=== PATIENT | female | born 1985 ===

== ENCOUNTER 2024-11-29 11:27 | Inpatient (IN) | payer BC, SELFPAY ==
[2024-11-29 01:13] VITALS: BP 132/82
--- NOTE | 2024-11-29 01:25 | ED.GENMED ---
History of Present Illness
General
Chief Complaint: Urinary Symptoms
Source: patient
Exam Limitations: none
Time Seen by Provider: 11/29/24 01:22
Nursing documentation reviewed up to this point in time: agreed with
History of Present Illness
History of Present Illness:
Note:
CHIEF COMPLAINT(S)
Abdominal pain and fever.
HISTORY OF PRESENT ILLNESS
The patient is a 39-year-old female with a history of recurrent urinary tract infections, presenting with abdominal pain and fever that began three days ago. She reports mistakenly taking ibuprofen instead of antibiotics for what she suspects is a
urinary tract infection. The abdominal pain is described as severe and primarily located in the upper abdomen, with the pain being worse on the left side. She also experiences frequency of urination without dysuria and feelings of nausea but no
vomiting. She acknowledges a history of similar symptoms in the past, which led to a diagnosis of a kidney infection requiring antibiotics. The patient notes that she typically begins with symptoms resembling a yeast infection before escalating to a
urinary tract infection and then a kidney infection. She is currently menstruating and has been since two days ago. She reports self-administering ibuprofen 800 mg and acetaminophen (Tylenol) but took these medications believing one was an
antibiotic, which she acknowledges was a misunderstanding. Her last administration was at approximately 11:50 p.m. She has a prior hospitalization related to similar symptoms but does not regularly follow with a urologist. She denies flank pain,
chest pain, shortness of breath.
PHYSICAL EXAM
- Nursing notes reviewed and vital signs reviewed.
- Patient acutely febrile, did not give medication for the fever right away because patient had doses of ibuprofen and Tylenol and 11:50 pm
General: Patient is well appearing and in no acute distress; non-toxic
Skin: Warm and dry, no rashes or lesions
Head: Normocephalic, atraumatic
Eyes: Sclera non-icteric. EOMs intact.
Cardiac: Regular rate and rhythm, no murmurs
Peripheral Vascular: No lower extremity swelling or edema
Pulm: Normal respiratory effort, no wheezes, rales, rhonchi
Abdomen: Left-sided abdominal tenderness to palpation
Neuro: CN II-XII intact, no focal neurologic deficits.
Psychiatric: Appropriate mood and affect.
PLAN
- CBC, CMP, urinalysis, lipase
- CT scan of the abdomen and pelvis
DIFFERENTIAL DIAGNOSIS
The Differential Diagnosis includes, in no particular order and is not limited to:
1. Pyelonephritis
2. Lower urinary tract infection
3. Gastroenteritis
4. Nephrolithiasis
5. Pelvic inflammatory disease
6. Diverticulitis
7. Appendicitis
8. Ureteral calculus
9. Bowel obstruction
CHART REVIEW
Reviewed ER physician documentation from 02/05/2023 patient seen for fevers and chills diagnosed with pyelonephritis discharged on antibiotics
MDM/DISPOSITION
The patient is a 39-year-old female with a history of recurrent urinary tract infections, presenting with abdominal pain and fever that began three days ago. She reports mistakenly taking ibuprofen instead of antibiotics for what she suspects is a
urinary tract infection. Patient also has had intermittent headaches and bodyaches as well. When reviewing her blood work, she does have a mild leukocytosis noted however her other blood work is unremarkable. Her urinalysis is concerning for
infection. Her CT scan shows left-sided pyelonephritis with no evidence of urinary obstruction. Also shows uterine fibroids. Patient will be admitted for further management and care. She started on Rocephin. ED attending aware.
Past History
Past History
ED Past Medical History: Asthma and Other (Pyelonephritis)
ED Past Surgical History:
Social History
Tobacco: Non-smoker
Review of Systems
Review of Systems
All Other Systems: ROS reviewed and negative except as documented in HPI and ROS
Phy Exam
Physical Exam
Physical Exam:
See HPI
Course
Orders/Labs/Results
Orders:
Orders
11/29/24 01:34
Beta Hcg Urine Qualitative Screen [HCG, Urine Qualitative Screen] Urgent
Date Specimen was Collected: 11/29/24
Time Specimen was Collected: 02:17
11/29/24 01:41
Complete Blood Count/With Diff Urgent
Comprehensive Metabolic Panel Urgent
Lipase Urgent
Comment: ADD ON
Urinalysis Reflex To Culture Urgent
Date Specimen was Collected: 11/29/24
Time Specimen was Collected: 01:34
Urine Microscopic Reflex Cult Urgent
Urine Culture Urgent
LOLY Source: U
Specimen Description:
Date Specimen was Collected: 11/29/24
Time Specimen was Collected: 01:34
11/29/24 01:45
CT Abd/pelvis W Iv Cont Urgent
Comment:
Reason For Exam: left sided abdominal pain
Ondansetron Injectable [Zofran] 4 mg IV NOW STA
11/29/24 01:52
Test Result ONCE
11/29/24 02:18
Add On- LAB Urgent
Tests Added?: hcg qualitative
11/29/24 02:42
Add On - Microbiology Urgent
Tests Added?: hcg qualitative
11/29/24 03:11
Ketorolac [Toradol] 15 mg IV NOW STA
11/29/24 03:16
Add On- LAB Urgent
Tests Added?: lipase
11/29/24 04:08
Acetaminophen [Tylenol] 650 mg PO NOW STA
CefTRIAXone [Rocephin] 1,000 mg IV NOW STA
11/29/24 04:10
Prochlorperazine [Compazine] 10 mg IV NOW STA
11/29/24 04:25
Sterile Water [Sterile Water For Injection] 10 ml .ROUTE .STK-MED ONE
11/29/24 04:30
US Pelvis Only (non-obstetric) Urgent
Comment:
Reason For Exam: pelvic pain
11/29/24 04:40
Lactic Acid Urgent
Blood Culture Q30M
LOLY Source: Blood/Venous
Specimen Description:
Blood Culture Q30M
LOLY Source: Blood/Venous
Specimen Description:
11/29/24 04:45
Admit/Transfer Patient As Directed
Co-Sign Provider:
Level of Care: Observation services
Assign to:: Medical/Surgical
Physician / Group: Danii
Diagnosis: Pyelonephritis
PRN Pain Medication Management As Directed
May give lesser potent ordered pain med per pt: Yes
preference::
Protocol:: Medication orders for pain may be administered in a
manner that supports deferring to patient preference
when the pt is:
- Requesting an ordered lesser potent pain medication.
Least to most potent pain medications are defined
as: acetaminophen < NSAID < tramadol < opioids
(morphine, oxycodone, hydromorphone).
- Requesting a lesser dose of the same medication IF
ORDERED.
- Requesting a less intrusive route of administration
if both routes are prescribed by the provider (PO <
IV).
11/29/24 04:46
Code Status As Directed
Resuscitation Status: Full Code
11/29/24 05:39
0.9% Sodium Chloride 1000 ml [Nss] 1,000 ml IV 100 mls/hr
Acetaminophen [Tylenol] 650 mg PO Q4HPRN PRN
Bisacodyl [Dulcolax] 10 mg RECTAL [id number] PRN
Docusate W/Senna [Senokot-S] 1 tablet PO BIDPRN PRN
HYDROmorphone [Dilaudid] 0.5 mg IV Q4HPRN PRN
Ketorolac [Toradol] 10 mg IV Q6HPRN PRN
Polyethylene Glycol Powder [Miralax] 17 grams PO DAILYPRN PRN
Prochlorperazine [Compazine] 10 mg IV Q6HPRN PRN
11/29/24 05:39
Activity As Directed
Activity Level: With Assistance
Sequential Compression Device [Pneumatic Compression Sleeves] As Directed
Type: Knee high
Vital Signs As Directed
Frequency: Per unit guidelines
Pulse Ox/spot Check [RESP] Routine
Quantity: 1
DX Deep Vein Thrombosis Video Routine
11/29/24 Breakfast
Regular
At Your Request: Full Participation
Does patient need a safe tray?: No
Basic Metabolic Panel IN AM
Complete Blood Count/No Diff IN AM
Ferritin IN AM
Iron IN AM
Magnesium IN AM
TSH Reflex To Free T4 IN AM
Total Iron Binding IN AM
11/30/24 06:00
CefTRIAXone [Rocephin] 1,000 mg IV Q24H
Abnormal Lab Results
11/29/24
01:41
WBC 11.1 H 10^3/uL
(4.8-10.8)
RBC 4.01 L 10^6/uL
(4.20-5.40)
Hgb 10.7 L g/dL
(12.0-16.0)
Hct 32.2 L %
(37.0-47.0)
MCV 80.3 L fL
(81.0-99.0)
MCH 26.7 L pg
(27.0-31.0)
RDW 15.1 H %
(11.5-14.5)
MPV 10.8 H fL
(7.4-10.4)
Abs Immat Gran (auto) 0.1 H 10^3/uL
(0-0.05)
Absolute Neuts (auto) 9.5 H 10^3/uL
(1.4-6.5)
Absolute Lymphs (auto) 0.5 L 10^3/uL
(1.2-3.4)
Absolute Monos (auto) 1.0 H 10^3/uL
(0.1-0.6)
Neutrophils % 85.6 H %
(42.2-75.2)
Lymphocytes % 4.5 L %
(20.5-51.1)
Potassium 3.4 L mmol/L
(3.5-5.1)
Chloride 108 H mmol/L
(98-107)
Carbon Dioxide 21 L mmol/L
(22-30)
Glucose 155 H mg/dl
(70-99)
AST 57 H U/L
(14-36)
ALT 89 H U/L
(0-35)
Ur Occult Blood Reflex 4+ A
(Negative)
Urine Urobilinogen 3+ A
(Neg - 1+)
Leukocyte Esterase Rfl 2+ A
(Negative)
Urine RBC >100 A /HPF
(0-2)
Urine WBC (Reflex) 30-40 A /HPF
(0-5)
Urine Bacteria (Reflex) Few A
(Negative)
Urine Albumin (Reflex) 3+ A
(Neg - Trace)
11/29/24 01:41
11/29/24 01:41
Vital Signs
Initial and Last Documented VS:
Initial Vital Signs
Temp Pulse BP Pulse Ox
100.8 F H 100 132/82 99
11/29/24 01:13 11/29/24 01:13 11/29/24 01:13 11/29/24 01:13
Last Documented Vital Signs
Temp Pulse Resp BP Pulse Ox
97.9 F 76 12 108/73 99
11/29/24 06:18 11/29/24 06:18 11/29/24 06:18 11/29/24 06:18 11/29/24 06:18
*Pulse Oximetry
SaO2: 99
Oxygen Mode of Delivery: Room air
*Critical Care Note
Total Time (30-74mins, 75-104mins- exclusive of procedures): Not Applicable
ED Attending Note
-
Portions of this chart may have been created with voice recognition software.� Occasional wrong word or��sound alike� substitutions may have occurred due to the inherent limitations of voice recognition software.
Discharge Plan
Departure
Patient Disposition: Admit
Date of Disposition: 11/29/24
Time of Disposition: 04:16
Admit to: Med/Surg
Presentation/result/management discussed w/ accepting MD/DO: Hospitalist
Patient with high blood pressure during this ER visit?: Yes
Condition: Fair
Discharge Problem:
Acute pyelonephritis
Interventions
Interventions:
*Risk Screen - Suicide Last Done: 11/29/24 01:17
*General Assessment Last Done: 11/29/24 01:17
*Neglect/Abuse Screening Last Done: 11/29/24 01:17
*ED- Fall Risk Assessment Last Done: 11/29/24 01:17
*ED COVID-19 Vaccine History Last Done: 11/29/24 01:17
*Nursing Disposition Last Done: 11/29/24 05:42
ED-Female Genitourinary Assessment Last Done: 11/29/24 02:28
Discharge Date and Time
Discharge Date/Time: 11/29/24 05:42
[2024-11-29 01:48] LABS: % Basophils 0.1 % (0-2); % Eosinophils 0.5 % (0-6); % Immature Granulocytes 0.4 % (0-0.5); % Lymphocytes 4.5 % (20.5-51.1); % Monocytes 8.9 % (1.7-9.3); % Neutrophils 85.6 % (42.2-75.2); Absolute Eosinophils 0.1 10^3/uL (0-0.7); Absolute Immature Granulocytes 0.1 10^3/uL (0-0.05); Absolute Lymphocytes 0.5 10^3/uL (1.2-3.4); Absolute Neutrophils 9.5 10^3/uL (1.4-6.5); Hematocrit 32.2 % (37.0-47.0); Hemoglobin 10.7 g/dL (12.0-16.0); Mean Corp Hgb Conc. 33.2 g/dL (33.0-37.0); Mean Corpuscular Hgb 26.7 pg (27.0-31.0); Mean Corpuscular Volume 80.3 fL (81.0-99.0); Mean Platelet Volume 10.8 fL (7.4-10.4); Nucleated Red Blood Cells % 0 %; Platelet Count 154 10^3/uL (130-400); Red Blood Cell Count 4.01 10^6/uL (4.20-5.40); Red Cell Dist. Width 15.1 % (11.5-14.5); Urine Albumin 3+ (Neg - Trace); Urine Bilirubin Negative (Negative); Urine Character Slightly Cloudy (Clear); Urine Color Amber; Urine Glucose Negative (Negative); Urine Ketone Negative (Negative); Urine Leukocyte 2+ (Negative); Urine Nitrite Negative (Negative); Urine Occult Blood 4+ (Negative); Urine Specific Gravity 1.015 (<1.030); Urine Urobilinogen 3+ (Neg - 1+); White Blood Cell Count 11.1 10^3/uL (4.8-10.8)
[2024-11-29 01:49] VITALS: BMI 20.7
[2024-11-29] MEDS: ZOFRAN 4 MG IV (01:50)
[2024-11-29 02:17] LABS: ALT (SGPT) 89 U/L (0-35); AST (SGOT) 57 U/L (14-36); Albumin 3.9 g/dl (3.5-5.0); Alkaline Phosphatase 121 U/L (38-126); Blood Urea Nitrogen 10 mg/dl (7-17); Calcium 8.7 mg/dl (8.4-10.2); Carbon Dioxide 21 mmol/L (22-30); Chloride 108 mmol/L (98-107); Estimated Creatinine Clearance 84 ml/min; Glucose 155 mg/dl (70-99); Potassium 3.4 mmol/L (3.5-5.1); Sodium 137 mmol/L (135-145); Total Bilirubin 0.9 mg/dl (0.2-1.3); eGFR > 60.00
[2024-11-29 02:50] LABS: HCG, Urine Qualitative Screen Negative
[2024-11-29 02:52] LABS: Urine Red Blood Cell >100 /HPF (0-2)
[2024-11-29 02:53] LABS: Urine Bacteria Few (Negative); Urine White Cell 30-40 /HPF (0-5)
[2024-11-29] MEDS: TORADOL 15 MG IV (03:34)
[2024-11-29 03:52] LABS: Lipase 73 U/L (23-300)
--- NOTE | 2024-11-29 04:25 | HPS.HSE ---
Family Physician
-
Family Physician: PHYSICIAN PRIVATE
Chief Complaint
-
Urinary symptoms
History of Present Illness
This is a 39-year-old generally healthy female who reports prior medical history of recurrent/yearly UTIs presenting to the emergency department with abdominal pain which she suspect is likely secondary to urinary tract infection.
Patient reports onset of symptoms about 3 to 4 days ago with bilateral lower quadrant abdominal pain with associated nausea but no vomiting. She reported that she started having chills and subjective fevers at home. She has had worsening abdominal
pain over the last 3 days. She took ibuprofen initially but despite the ibuprofen she continued to have pain and then broke a fever today. She reports that she has had urinary frequency but denies dysuria. She denies flank pain. She denies any
recent antibiotic use.
In the emergency department the patient was afebrile, blood pressure was 130/80 with a pulse of 100 and she was satting 99% on room air. Next
White count was 11.1, hemoglobin and platelets were normal. Electrolytes were unremarkable. BUN/creatinine was normal. Glucose was 155.
Imaging showed striated left nephrogram compatible with pyelonephritis, no obstructive uropathy.
Medical History
Past Medical History
Past Medical History: Reports None
Past Surgical History: Reports Other (Nasal septoplasty)
Social History
Tobacco: Non-smoker
Alcohol: None
Drug: None
Personal:
Living: With Family
Family History
Family History: Not pertinent
Allergies / Home Medications
Allergies reflects when Allergies were last updated in [employer].
Home Medications with original date entered in [employer]
Allergy/Medication List:
Allergies
Allergy/AdvReac Type Severity Reaction Status Date / Time
pork derived (porcine) Allergy Unknown Verified 11/29/24 01:17
Home Medications
No current home medications
Review of Systems
-
History Source: Patient
Constitutional: Reports No Symptoms
EENT: Reports No Symptoms
Respiratory: Reports No Symptoms
Cardiac: Reports No Symptoms
Abdomen/GI: Reports Abdominal Pain
: Reports Frequency
Musculoskeletal: Reports No Symptoms
Skin: Reports No Symptoms
Neurological: Reports No Symptoms
Endocrine: Reports No Symptoms
Hematologic/Lymphatic: Reports No Symptoms
Psych: Reports No Symptoms
Physical Exam
Vital Signs
Vital Signs
Temp Pulse BP Pulse Ox
98.7 F 100 132/82 99
11/29/24 03:40 11/29/24 01:13 11/29/24 01:13 11/29/24 01:35
Physical Exam
General: Well Developed and Chills
HEENT: NormoCephalic, Anicteric, Moist mucous membranes and Atraumatic
Respiratory: Clear
Cardiac: S1/S2 and Regular Rhythm
Breast: Deferred by me
GI: Soft, Non Tender, Non Distended and Normal Bowel Sounds
Rectal: Deferred by Provider
Genito-urinary: Deferred by me
Musculoskeletal: No Clubbing, No Cyanosis and No Edema
Skin: Warm
Neuro: AO x 3 and Nonfocal/grossly intact
Hematologic/Lymphatic: No Lymphadenopathy
Psych: Calm
Laboratory Results
-
11/29/24 01:41
11/29/24 01:41
Laboratory Results
Total Bilirubin 0.9 mg/dl (0.2-1.3) 11/29/24 01:41
AST 57 U/L (14-36) H 11/29/24 01:41
ALT 89 U/L (0-35) H 11/29/24 01:41
Alkaline Phosphatase 121 U/L (38-126) 11/29/24 01:41
Lipase 73 U/L (23-300) 11/29/24 01:41
Data Reviewed
-
CT Scan: Report Reviewed by me
Lab Data: Labs Reviewed by me
Old Records: Reviewed
Impression/Plan
-
IMPRESSION:
39-year-old female with fevers, chills, abdominal pain and nausea and found to have markedly positive UA, and left pyelonephritis on CT scan. She is afebrile here, hemodynamically stable and nontachycardic. She does not meet sepsis criteria.
However she has a history of recurrent urinary tract infections and pyelonephritis in the past. No recent antibiotic use. No prior cultures.
PLAN:
Pyelonephritis
[facility]
-Urine cultures, blood cultures
-IV ceftriaxone
-Pain control, antiemetics, IV fluids
Incidental pelvic mass
-Incidental pelvic mass noted by ED physician, suspected likely uterine fibroids but cannot evaluate fully at this time
-Pelvic ultrasound ordered with results pending, follow-up on result
Anemia - Microcytic. Given pelvic mass concern for SUSHIL
- check iron panel/ferritin and tsh
- no indication for transfusion
DVT prophylaxis�SCDs
CODE STATUS�full code
[2024-11-29] MEDS: TYLENOL 650 MG PO ×3 (04:37→21:09)
[2024-11-29] MEDS: ROCEPHIN 1000 MG IV ×2 (04:37→16:31)
[2024-11-29] MEDS: COMPAZINE 10 MG IV (04:38)
[2024-11-29 05:16] LABS: Lactic Acid 1.1 mmol/L (0.7-2.0)
--- NOTE | 2024-11-29 05:51 | PTCARENOTE ---
Patient arrived via stretcher around 05:35 with dx of pyelonephritis. AAOX3. No c/o pain or discomfort at current time. Pleasant and cooperative with care. Oriented to unit. Call whiting within reach.
[2024-11-29] MEDS: NSS 1000 IV (05:57)
[2024-11-29 06:00] VITALS: BMI 19.8
[2024-11-29 06:18] VITALS: BP 108/73
[2024-11-29 07:00] VITALS: BP 98/60
[2024-11-29 07:45] LABS: Hemoglobin 9.9 g/dL (12.0-16.0); Mean Corpuscular Hgb 26.5 pg (27.0-31.0); Mean Corpuscular Volume 80.4 fL (81.0-99.0); Mean Platelet Volume 11.5 fL (7.4-10.4); Platelet Count 149 10^3/uL (130-400); Red Blood Cell Count 3.73 10^6/uL (4.20-5.40); White Blood Cell Count 9.7 10^3/uL (4.8-10.8)
[2024-11-29 08:11] LABS: Blood Urea Nitrogen 9 mg/dl (7-17); Calcium 9.1 mg/dl (8.4-10.2); Carbon Dioxide 24 mmol/L (22-30); Chloride 108 mmol/L (98-107); Estimated Creatinine Clearance 82 ml/min; Glucose 117 mg/dl (70-99); Magnesium 1.8 mg/dl (1.6-2.3); Sodium 140 mmol/L (135-145); eGFR > 60.00
[2024-11-29 08:16] LABS: Iron < 20 ug/dl (37-170)
[2024-11-29 08:20] LABS: Total Iron Binding Capacity 289 ug/dl (265-497)
[2024-11-29 08:40] VITALS: BP 98/60
[2024-11-29 08:40] LABS: TSH Reflex To Free T4 2.13 uIU/ml (0.47-4.68)
[2024-11-29 09:41] LABS: ALT (SGPT) 73 U/L (0-35); AST (SGOT) 43 U/L (14-36); Albumin 3.3 g/dl (3.5-5.0); Alkaline Phosphatase 100 U/L (38-126); Total Bilirubin 0.6 mg/dl (0.2-1.3); Total Protein 6.2 g/dl (6.3-8.2)
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
[2024-11-29] MEDS: TORADOL 10 MG IV (11:17)
[2024-11-29 15:00] VITALS: BP 120/73
--- NOTE | 2024-11-29 15:20 | CM ---
Patient seen bedside w/ spouse, initial assessment completed. Patient is a 39-year-old generally healthy female who reports prior medical history of recurrent/yearly UTIs presenting to the emergency department with abdominal pain.
Patient resides w/ spouse and their daughter in a 2[facility], no steps to enter. Independent in all areas, no DME. No therapy hx.
Address, point of contact and insurance verified
PCP: Mic Kearney
Pharmacy: [facility]
Plan: Home, no needs
--- NOTE | 2024-11-29 16:21 | PTCARENOTE ---
Temp 101.3 , hospitalist aware, tylenol given.
[2024-11-29] MEDS: STERILE WATER FOR INJECTION 10 ML IV (16:31)
[2024-11-29 23:30] VITALS: BP 130/76
[2024-11-30 06:32] LABS: Hematocrit 29.4 % (37.0-47.0); Hemoglobin 9.8 g/dL (12.0-16.0); Mean Corp Hgb Conc. 33.3 g/dL (33.0-37.0); Mean Corpuscular Hgb 26.4 pg (27.0-31.0); Mean Corpuscular Volume 79.2 fL (81.0-99.0); Platelet Count 142 10^3/uL (130-400); Red Blood Cell Count 3.71 10^6/uL (4.20-5.40); Red Cell Dist. Width 15.5 % (11.5-14.5); White Blood Cell Count 8.5 10^3/uL (4.8-10.8)
[2024-11-30 06:50] LABS: ALT (SGPT) 51 U/L (0-35); AST (SGOT) 23 U/L (14-36); Albumin 3.1 g/dl (3.5-5.0); Alkaline Phosphatase 100 U/L (38-126); Blood Urea Nitrogen 9 mg/dl (7-17); Calcium 8.3 mg/dl (8.4-10.2); Carbon Dioxide 24 mmol/L (22-30); Chloride 110 mmol/L (98-107); Estimated Creatinine Clearance 82 ml/min; Glucose 105 mg/dl (70-99); Potassium 3.9 mmol/L (3.5-5.1); Sodium 138 mmol/L (135-145); Total Bilirubin 0.7 mg/dl (0.2-1.3); Total Protein 6.1 g/dl (6.3-8.2); eGFR > 60.00
[2024-11-30 07:00] VITALS: BP 115/70
[2024-11-30] MEDS: STERILE WATER FOR INJECTION 20 ML IV (09:17)
[2024-11-30] MEDS: COMPAZINE 10 MG IV (09:18)
[2024-11-30] MEDS: ROCEPHIN 2000 MG IV (09:18)
[2024-11-30] MEDS: TORADOL 10 MG IV (09:24)
--- NOTE | 2024-11-30 10:05 | PHA.VAN.IN ---
Assessment
- Assessment
Renal Function: Unknown baseline
Maximum Temperature: 102.1
Minimum Temperature: 98.9
Concomitant Antimicrobials: Ceftriaxone
AUC Dosing Plan
- Dosing Variables
Dosing Weight (kg): 49
Dosing CrCl (ml/min): 82
Vd coefficient (L/kg): 0.7
- Empiric Dosing
Initial / Loading Dose: Vanc 1000mg--administration pending
Maintenance Regimen: Vanc 500mg IV q12H. Begin at 1800
Estimated AUC (mcg*h/mL): 416.94
Estimated Peak (mcg*h/mL): 25.1
Estimated Trough (mcg/ml): 11.3
Estimated Half Life (H): 9.6
- Monitoring
No levels ordered at this time: Consider levels after 12/02 1800 dose
Pharmacokinetics Vancomycin I
- -
Patient Age: 39
Patient Sex: Female
Vancomycin Day #: 1
Indication: Bacteremia
Requesting Provider: Gertrudis
Height / Weight:
Height 5 ft 2 in
Actual Weight 49.045 kg
IBW in k.1
Adjusted BW in kg: NA
- Vital Signs / Lab Results
Temp Pulse Resp BP Pulse Ox
98.9 F 85 16 115/70 98
11/30/24 09:21 11/30/24 07:00 11/30/24 07:00 11/30/24 07:00 11/30/24 07:00
Lab Results - Hematology
11/29/24 11/29/24 11/30/24
01:41 06:47 06:10
WBC 11.1 H 9.7 8.5
Lab Results - Chemistry
11/29/24 11/29/24 11/30/24
01:41 06:47 06:10
BUN 10 9 9
Creatinine 0.7 0.7 0.7
Estimated Creat Clear 84 82 82
Albumin 3.9 3.3 L 3.1 L
11/29/24
04:40
Lactic Acid 1.1
Lab Results - Urine
11/29/24
01:41
Urine Nitrite (Reflex) Negative
Leukocyte Esterase Rfl 2+ A
Urine WBC (Reflex) 30-40 A
Ur Squamous Epith Cells 3-5
Urine Bacteria (Reflex) Few A
Microbiology Results
11/29/24 04:40 Blood Culture - Preliminary
Blood/Venous Positive culture in progress
Gram Stain - Final
11/29/24 04:40 Blood Culture - Preliminary
Blood/Venous Positive culture in progress
Gram Stain - Preliminary
--- NOTE | 2024-11-30 11:12 | W.PN.HOSP.TC ---
Today's Communication/Plan
-
await culture results
continue Rocephin, day 2 - for UTI
continue Vanco, day 1 - for bacteremia
Tylenol and/or ice packs for fevers
Assessment / Plan
Assessment / Plan
Assessment:
Acute pyelonephritis, left
Sepsis present on arrival (leukocytosis, fevers)
Gram positive bacteremia
- Urine culture with E. Coli - continue Rocephin, day 2
- added Vancomycin 11/30 with finding of gram positive bacteremia in 2 bottles - awaiting identification, could be contaminant. if true pathogen, will need Echo Monday.
- repeat blood cultures in AM
- continue IVF
- pain control and anti-emetics
Uterine fibroids
- outpatient ibm bpm developer follow up
Iron deficiency anemia
- start oral iron at discharge
- check B12/Folate
- TSH normal
- OP PCP f/u
- could be related to fibroids - OP Regulated Program Manager f/u
Hypokalemia - replete prn
DVT ppx: SCDs
Code: Full
Anticipated Discharge: > 48 hours
Subjective/Interval History
-
Date of Service: November 30, 2024
multiple fevers overnight
resting comfortably, no complaints at present
Objective Data
-
Labs:
Laboratory Results
11/30/24
06:10
WBC 8.5
Hgb 9.8 L
Hct 29.4 L
Plt Count 142
Sodium 138
Potassium 3.9
Chloride 110 H
Carbon Dioxide 24
BUN 9
Creatinine 0.7
Glucose 105 H
Calcium 8.3 L
Total Bilirubin 0.7
AST 23
ALT 51 H
Alkaline Phosphatase 100
Vital Signs:
Vital Signs
Temp Pulse Resp BP Pulse Ox
98.9 F 85 16 115/70 98
11/30/24 09:21 11/30/24 07:00 11/30/24 07:00 11/30/24 07:00 11/30/24 07:00
I&O
11/29/24 11/30/24 12/01/24
06:59 06:59 06:59
Intake Total 1480 / 1480
Output Total 0 / 0
Balance 1480 / 1480
Physical Exam
-
General: No Apparent Distress
HEENT: Normocephalic and Atraumatic
Respiratory: Negative Wheezes
Cardiac: Regular Rhythm and S1/S2
GI: Soft
Neuro: AO x 3
Psych: Calm
Data Reviewed
-
Total Time Spent with Patient (in minutes): 42
Labs: Labs Reviewed by me
[2024-11-30] MEDS: VANCOCIN 200 IV (11:23)
[2024-11-30] MEDS: VISBIOME 1 CAP PO (15:06)
[2024-11-30 15:27] VITALS: BP 94/63
[2024-11-30] MEDS: VANCOCIN HCL 500 MG 100 IV (18:11)
[2024-11-30 23:34] VITALS: BP 111/75
[2024-12-01] MEDS: TYLENOL 650 MG PO (03:53)
[2024-12-01 05:50] LABS: Hematocrit 28.5 % (37.0-47.0); Hemoglobin 9.5 g/dL (12.0-16.0); Mean Corp Hgb Conc. 33.3 g/dL (33.0-37.0); Mean Corpuscular Hgb 26.1 pg (27.0-31.0); Mean Corpuscular Volume 78.3 fL (81.0-99.0); Mean Platelet Volume 10.8 fL (7.4-10.4); Platelet Count 169 10^3/uL (130-400); Red Blood Cell Count 3.64 10^6/uL (4.20-5.40); Red Cell Dist. Width 15.4 % (11.5-14.5); White Blood Cell Count 5.8 10^3/uL (4.8-10.8)
[2024-12-01 06:13] LABS: Blood Urea Nitrogen 7 mg/dl (7-17); Calcium 8.3 mg/dl (8.4-10.2); Carbon Dioxide 22 mmol/L (22-30); Chloride 110 mmol/L (98-107); Estimated Creatinine Clearance 96 ml/min; Glucose 100 mg/dl (70-99); Potassium 3.4 mmol/L (3.5-5.1); Sodium 140 mmol/L (135-145); eGFR > 60.00
[2024-12-01] MEDS: VANCOCIN HCL 500 MG 100 IV ×2 (06:23→17:12)
[2024-12-01] MEDS: FLUSH (NSS) 2 FLUSH IV (06:25)
[2024-12-01 07:11] LABS: Folate 11.3 ng/ml (2.76-20); Vitamin B12 914 pg/ml (239-931)
[2024-12-01 07:45] VITALS: BP 133/105
[2024-12-01] MEDS: ROCEPHIN 2000 MG IV (08:51)
[2024-12-01] MEDS: STERILE WATER FOR INJECTION 20 ML IV (08:51)
[2024-12-01] MEDS: VISBIOME 1 CAP PO (08:51)
--- NOTE | 2024-12-01 09:05 | PHA.VAN.FU ---
Vancomycin Assessment / Plan
- Assessment
Renal Function: SCR Decreasing
WBC's are: Trending Down
In the past 24 hrs, patient has been: Febrile (Tmax = 100.9)
Concomitant Antimicrobials: Ceftriaxone
- Dosing Plan
Continue: Vanc 500mg IV q12H
- Monitoring Plan
Peak Level: 12/01 at 2100
Trough Level: 12/02 at 0530
- Follow Up
Pharmacy will continue to follow.
Vancomycin Follow UP
- -
Patient Age: 39
Patient Sex: Female
Vancomycin Day #: 2
Indication: Bacteremia
Requesting Provider: Gertrudis
Height / Weight:
Height 5 ft 2 in
Actual Weight 49.045 kg
IBW in k.1
Adjusted BW in kg: NA
- Vital Signs / Lab Results
Temp Pulse Resp BP Pulse Ox
98.1 F 69 19 133/105 99
12/01/24 07:45 12/01/24 07:45 12/01/24 07:45 12/01/24 07:45 12/01/24 07:45
Lab Results - Hematology
11/29/24 11/29/24 11/30/24
01:41 06:47 06:10
WBC 11.1 H 9.7 8.5
12/01/24
05:28
WBC 5.8
Lab Results - Chemistry
11/29/24 11/29/24 11/30/24
01:41 06:47 06:10
BUN 10 9 9
Creatinine 0.7 0.7 0.7
Estimated Creat Clear 84 82 82
Albumin 3.9 3.3 L 3.1 L
12/01/24
05:28
BUN 7
Creatinine 0.6
Estimated Creat Clear 96
Albumin
11/29/24
04:40
Lactic Acid 1.1
Lab Results - Urine
11/29/24
01:41
Urine Nitrite (Reflex) Negative
Leukocyte Esterase Rfl 2+ A
Ur Squamous Epith Cells 3-5
Microbiology Results
11/29/24 01:41 Urine Culture - Final
Urine Escherichia coli
11/29/24 04:40 Blood Culture - Preliminary
Blood/Venous Positive culture in progress
Gram Stain - Final
11/29/24 04:40 Blood Culture - Preliminary
Blood/Venous Positive culture in progress
Gram Stain - Preliminary
[2024-12-01 15:45] VITALS: BP 136/95
[2024-12-01] MEDS: KCL 20 MEQ PO (15:57)
[2024-12-01] MEDS: FERRLECIT 110 MG IV (15:57)
--- NOTE | 2024-12-01 16:07 | W.PN.HOSP.TC ---
Today's Communication/Plan
-
dc to home
Assessment / Plan
Assessment / Plan
Assessment:
Acute pyelonephritis, left
Sepsis present on arrival (leukocytosis, fevers)
Will refer to Urogyn
Gram positive bacteremia
- Urine culture with E. Coli - received Rocephin, day 2
- added Vancomycin 11/30 with finding of gram positive bacteremia in 2 bottles - most likely contaminant. no joint replacement or heart valve, etc. Call placed and discussed with Dr. Hall, ID. Very unlikely to be anything other than a contaminant
- repeat blood cultures negative to date
Uterine fibroids
- outpatient inside sales trainer follow up
Iron deficiency anemia
- start oral iron at discharge
recommend vitamins
repeat Fe studies, PCP may want to consider IV Fe infusions
-
- TSH normal
- OP PCP f/u
- could be related to fibroids - OP Topper Packer f/u, states she has developed very heavy periods
Hypokalemia - repleted. Will need follow up
DVT ppx: SCDs
Code: Full
see dictated note
More than 30 minutes spent in discharge including
Final examination of the patient
Summarizing hospital stay
Instructions for continuing care to all relevant caregivers
Preparation of discharge records, prescriptions, and referral forms
Total time spent (in minutes): 45 minutes
Anticipated Discharge: Today
Subjective/Interval History
-
Date of Service: December 01, 2024
Generally feeling better
Objective Data
-
Labs:
Laboratory Results
12/01/24
05:28
WBC 5.8
Hgb 9.5 L
Hct 28.5 L
Plt Count 169
Sodium 140
Potassium 3.4 L
Chloride 110 H
Carbon Dioxide 22
BUN 7
Creatinine 0.6
Glucose 100 H
Calcium 8.3 L
Vital Signs:
Vital Signs
Temp Pulse Resp BP Pulse Ox
98.1 F 83 20 136/95 100
12/01/24 15:45 12/01/24 15:45 12/01/24 15:45 12/01/24 15:45 12/01/24 15:45
I&O
11/30/24 12/01/24 12/02/24
06:59 06:59 06:59
Intake Total 1480 / 1480 100 / 100 480 / 480
Output Total 0 / 0
Balance 1480 / 1480 100 / 100 480 / 480
Review of Systems
-
History Source: Patient and Coordinated Provider
Constitutional: Denies Fever (last fever was 11/30 at 23:34 at 100.9)
EENT: Reports No Symptoms Reported
Respiratory: Reports No Symptoms
Cardiac: Reports No Symptoms
Abdomen/GI: Reports No Symptoms
Genitourinary: Reports No Symptoms; Denies Dysuria, Frequency, Flank Pain or Urgency
Musculoskeletal: Reports No Symptoms
Neuro: Reports No Symptoms
Physical Exam
-
General: Well Developed, Well Nourished and No Apparent Distress
HEENT: Normocephalic, Atraumatic and Moist Mucous Membranes
Respiratory: Clear to Auscultation; Negative Wheezes, Rales or Rhonchi
Cardiac: S1/S2
GI: Soft, Nontender and Nondistended
Genito-urinary: No Costovertebral Tender
Musculoskeletal: No Clubbing, No Cyanosis and No Edema
Neuro: Awake, Alert and Oriented
--- NOTE | 2024-12-01 18:49 | W.DS.TRANS ---
DC Summary - Massage Operator
-
Discharge Instructions:
Discharge Diagnosis/Procedures Pyelonephritis
Diet Regular
Activity As tolerated
Driving Restrictions No driving for 24 hours
Bathing Restrictions None
Blood Work CBC, CMP, UA with culture and Blood Culturesx2
in 10-14 days
Iron studies in 4-6 weeks
Instructions:
Stand-Alone Forms:
Changes to Home Medications: Yes
Discharge Medications:
DC Medications w/original date entered in [employer]
Breo Ellipta 1 inhalation DAILY Asthma 11/29/24
ciprofloxacin HCl 500 mg tablet (Cipro) 500 mg PO Q12H #14 tabs 12/01/24
vits,calcium 21-iron fum 14 mg iron-folic acid 400 mcg tablet ( Complete) 1 tab PO DAILY #30 tabs 12/01/24
Home Medication Changes
Cipro for 1 week
Multivitamin (such as a ) with Iron
Pending Results: Yes (repeat Blood Cultures final results)
--- NOTE | 2024-12-02 09:02 | PN.CDI ---
CDI
- -
CDI:
Physician Documentation Request
Admit Date: 11/29/24 11:27
Dear Doctor Pamela,
Clinical Indicators:
Documentation in the record includes the diagnosis of sepsis. The following clinical information was noted in the record:
11/29 H & P, 'She does not meet sepsis criteria.'
12/01 PN, ' Sepsis present on arrival (leukocytosis, fevers)..Gram positive bacteremia...most likely contaminant.'
WBC on admission:
11/29/24
01:41
WBC 11.1 H
Recognized standard criteria for this condition and other associated definitions:t
�Sepsis
-Systemic manifestations of infection, with 2 or more SIRS criteria which include:
-Fever > 100.9F or hypothermia < 96.8F
-Leukocytosis WBC > 12,000 or leukopenia, WBC < 4,000, or > 10% bands
-Tachycardia- > 90 beats/minute
-Tachypnea- RR > 20 breaths/minute or PaCO2 < 32mmHg
Based on the above information and the recognized standard SIRS criteria, please clarify if sepsis is still an accurate diagnosis, and reflective of the patient�s condition, to ensure quality of the medical record.
Please clarify in the Progress Notes:
After study sepsis has been ruled out.
�Sepsis is/was present and is a clinical diagnosis based on (please include this additional support in the medical record)
Other, please specify
Use of terms such as suspected, likely, concern for, or probable (associated with a specific diagnosis that is being evaluated, monitored, or treated as if it exists) are acceptable and can be coded in the inpatient setting, when documented at the
time of discharge.
Thank you,
GEORGIA Duffy RN
CDI Specialist
available via tiger text
Please use your independent medical judgment in providing your response.
--- NOTE | 2024-12-02 09:29 | PN.CDI ---
CDI
- -
CDI:
Physician Documentation Request
Admit Date: 11/29/24 11:27
Dear Doctor Saul,
Clinical Indicators:
Patient admitted with acute pyelonephritis.
11/29 Urine culture:
11/29/24 01:41 Urine Culture - Qi
Urine Escherichia coli
Resistance to amoxicillin /ampicillin/cefazolin noted on culture report.
Based on the above, could you clarify in the progress notes, the appropriate diagnosis, if significant, that supports the above abnormalities and additional evaluation, monitoring and/or treatment rendered:
UTI with antibiotic resistance
UTI only
Other
Use of terms such as suspected, likely, concern for, or probable (associated with a specific diagnosis that is being evaluated, monitored, or treated as if it exists) are acceptable and can be coded in the inpatient setting, when documented at the
time of discharge.
Thank you,
GEORGIA Duffy RN
CDI Specialist
available via tiger text
Please use your independent medical judgment in providing your response.
== END 2024-12-01 18:14 | disposition home or self-care (01) | DRG 872 ==
LOC: 4 WEST ACU 11:27
PROVIDERS: Internal Medicine; Physician Assistant; ADMITTING PHYSICIAN Internal Medicine; ATTENDING PHYSICIAN Internal Medicine; EMERGENCY PHYSICIAN Student in an Organized Health Care Education/Training Program
DX: A41.9 Sepsis, unspecified organism (principal); N10 Acute pyelonephritis; D50.9 Iron deficiency anemia, unspecified; J45.909 Unspecified asthma, uncomplicated; D25.9 Leiomyoma of uterus, unspecified; E87.6 Hypokalemia; Z87.440 Personal history of urinary (tract) infections; Z91.014 Allergy to mammalian meats
CPT/HCPCS: 74177; 76856; 80048; 80053; 81003; 81015; 81025; 82607; 82728; 82746; 83540; 83550; 83605; 83690; 83735; 84443; 85025; 85027; 87040; 87077; 87086; 87147; 87150; 87186; 87205; 96374; 96375; 99285; J2916; Q9967

== ENCOUNTER 2025-01-24 06:10 | Day surgery (SDC) | payer BC, SELFPAY ==
[2025-01-24] VITALS (14 sets, daily range): BP systolic 125–149; BP diastolic 81–101; BMI 19.2
[2025-01-24] MEDS: NORMOSOL-R/PLASMALYTE-A 1000 IV (13:08)
[2025-01-24] MEDS: DILAUDID 0.5 MG IV ×2 (15:13→15:41)
== END 2025-01-24 17:37 | disposition home or self-care (01) ==
LOC: SDS 06:10
PROVIDERS: ATTENDING PHYSICIAN Otolaryngology Facial Plastic Surgery
DX: L02.01 Cutaneous abscess of face (principal); J34.89 Other specified disorders of nose and nasal sinuses; M95.0 Acquired deformity of nose; T85.79XA Infection and inflammatory reaction due to other internal prosthetic devices, implants and grafts, initial encounter; Y82.8 Other medical devices associated with adverse incidents
CPT/HCPCS: 20680; 88300; 88304